=== PATIENT | female | born 1985 | race Caucasian/White ===

== ENCOUNTER 2017-12-08 19:01 | Observation (INO) | payer OTHER ==
[2017-12-08] MEDS ORDERED: Dicyclomine 20 MG TAB ONE (19:30)
[2017-12-08 19:51] LABS: Bilirubin Negative (Negative); Blood, Urine Negative (Negative); Clarity CLEAR (Clear); Glucose, Urine (Dipstick) Negative (Negative); Leukocyte Negative (Negative); Nitrite Negative (Negative); Protein, Urine (Dipstick) Negative (Neg-Trace); Specific Gravity, Urine 1.005 (1.002-1.036); Urobilinogen 0.2 mg/dL (0.2-1.0); pH, Urine 5.5 (5.0-9.0)
[2017-12-08] MEDS ORDERED: Piperacillin/Tazobactam 3.375 GM VIAL ONE (20:14)
--- NOTE | 2017-12-08 20:30 | ULT ---
ULTRASOUND ABDOMEN LIMITED: (RIGHT UPPER QUADRANT) DATE: 12-08-17 TIME: 7:48 p.m. HISTORY: 32-year-old female with right upper quadrant abdominal pain. FINDINGS: Gallbladder: Distended. Positive pericholecystic fluid. Some portions of the wall are normal while ot hers are edematous and thickened up to 7 mm. At least one tiny mobile gallstone, a few mm in size. Po sitive sonographic Harrison's sign. Common duct: 4 mm Liver: Echogenicity within normal limits Pancreas: Poorly visualized Right kidney: No hydronephrosis IMPRESSION: 1. Evidence for acute cholecystitis. 2. Cholelithiasis consisting of at least one tiny visualized gallstone. RUSS Thomas POS: ANTON
[2017-12-08 20:57] LABS: Mean Corpuscular HGB CONC 31.5 g/dL (32.0-36.0); Mean Corpuscular Hemoglobin 20.8 pg (27.0-31.0); Mean Corpuscular Volume 66.1 fL (78.0-98.0); Platelet Count 234 thou/uL (130-400); RBC Distribution Width 15.1 % (11.5-14.5); White Blood Cell (WBC) Count 9.7 thou/uL (4.8-10.8)
[2017-12-08 21:07] LABS: ALT (SGPT) 12 U/L (8-55); AST (SGOT) 15 U/L (5-34); Albumin 3.6 g/dL (3.5-5.0); Alkaline Phosphatase 67 U/L (40-150); Anion Gap 8 mmol/L (10-20); BUN (Urea Nitrogen) 11 mg/dL (7.0-18.7); Bilirubin, Total 0.6 mg/dL (0.2-1.2); Calc. Creatinine Clearance 0 mL/min (70-130); Calcium 8.4 mg/dL (7.8-10.44); Carbon Dioxide 23 mmol/L (22-29); Chloride 110 mmol/L (98-107); Estimated GFR-MDRD Greater than 90; Globulin 2.5 g/dL (2.4-3.5); Glucose 98 mg/dL (70-105); Lipase 73 U/L (8-78); Protein, Total 6.1 g/dL (6.0-8.3); Sodium 137 mmol/L (136-145)
[2017-12-08 21:18] LABS: #Lymphocytes 1.6 thou/uL (1.20-3.40); #Monocytes 0.5 thou/uL (0.11-0.59); #Neutrophils 7.5 thou/uL (1.40-6.50); %Basophils 0.4 % (0.0-1.0); %Eosinophils 0.1 % (0.0-10.0); %Lymphocytes 16.7 % (21.0-51.0); %Monocytes 5.4 % (0.0-10.0); %Neutrophils 77.4 % (42.0-75.0); Anisocytosis SLIGHT = 6-15 cells (100X) (0-5/hpf); MDiff Complete? YES; Microcytosis SLIGHT = 6-15 cells (100X) (0-5/hpf)
[2017-12-08] MEDS ORDERED: Dextrose 50% Abboject 50 ML SYRINGE SLOW IVP PRN (21:18)
[2017-12-08] MEDS ORDERED: Dextrose 5% in Water 1,000 ML IV PRN (21:18)
[2017-12-08] MEDS ORDERED: Ondansetron PF 4 MG/2 ML Vial IVP PRN (21:18)
--- NOTE | 2017-12-08 21:55 | HP ---
DATE OF ADMISSION: 12/08/2017 HISTORY OF PRESENT ILLNESS: Ms. Armas is a 32-year-old obese woman , who presented t o the Emergency Department today in [place] complaining of insidious onset postprandial epigastric t o right upper quadrant severe abdominal pain, which started approximately 2 hours after she had lunch . I had lunch consisting of scrambled eggs, biscuit, and gravy. The pain was described as a 10/10 i n intensity without any radiation. The pain was associated with multiple episodes of nausea and two bouts of emesis. She has been having frequent flatulence over the last 2 days and had one bout of diarrhea yesterday. The patient experienced similar pain in 2010, when she was almost near term. The pain, payne pérez, was self-limiting and was managed with bland diet to the time of delivery. She denies any fevers or chills today. PAST MEDICAL HISTORY: Significant for chronic anxiety disorder and gastroesophageal reflux disease. SURGICAL HISTORY: Pertinent for x2. Last was in 09/2010. FAMILY HISTORY: Notable for mother, who from complications of heart disease in her age 52. She denies any family history of essential hypertension, diabetes mellitus, or cancer. SOCIAL HISTORY: She lives at home with significant other and 2 children. She denies any cigarette s moking, ethanol, or illicit drug abuse. PREHOSPITAL MEDICATION: Includes Xanax, which she takes p.r.n. anxiety. She also takes Zantac over the counter, which she takes p.r.n. reflux disease. ALLERGIES: Patient denies any known drug allergies. REVIEW OF SYSTEMS: Ten-point review of systems essentially unremarkable except as stated in the past medical history and chief complaint. PHYSICAL EXAMINATION: GENERAL: This reveals a 32-year-old obese woman, who is otherwise coherent and interactive and appea rs stated age. The patient is alert and oriented x3. She appears to be in no significant acute dist ress at the time of this evaluation. VITAL SIGNS: Includes blood pressure 119/71, pulse is 67, respirations 16, temperature is 98.5 degre es Fahrenheit, and oxygen saturation is 98% on room air. HEENT: Reveals normocephalic and atraumatic. Pupils are equal, round, reactive to light and accommo dation. Extraocular muscles are intact bilaterally. She has no sclerae icterus present. HEART: Reveals regular rate and rhythm, no murmurs or gallops auscultated. LUNGS: Clear to auscultation bilaterally. Her breathing is regular and unlabored. ABDOMEN: Soft with epigastric and right upper quadrant tenderness to palpation. Liver and spleen ar e nonpalpable below costal margins. She has a healed Pfannenstiel incision consistent with previous C-sections. EXTREMITIES: Reveal 2+ radial and pedal pulses bilaterally. No ankle edema is present. NEUROLOGIC: Reveals no focal deficits present. IMAGING: I have personally reviewed the abdominal ultrasound, which was obtained here reveals a tiny mobile gallstone. The patient, however, has significant gallbladder wall thickening, which measures approximately 7 mm. There is pericholecystic fluid also present. Common bile duct is normal in diameter for this patient's age at 4 mm. PERTINENT LABORATORY FINDINGS: Today includes a CBC with 9700 white blood cells, hemoglobin and linwood tocrit 10.0 and 31.7 respectively. Platelet count is 234,000. Metabolic profile: Sodium 137, potas sium is 4.0, chloride is 110, bicarbonate 23, BUN 11, creatinine 0.67. AST and ALT normal at 15 and 12 respectively. Serum lipase is also normal at 73. IMPRESSION: Acute cholecystitis with cholelithiasis. RECOMMENDATIONS: [place] diet and analgesics and patient could be discharged home. Anticipate that th e pain might resolve. Alternatively, we will proceed with a laparoscopic cholecystectomy with potent ial risks for bleeding, infection, injury to bile duct or surrounding structures. This information was provided to the patient in the presence of a significant other and nurse at [facility]. The patient has elected to proceed with a cholecystectomy. She states that she has tried a bland t during her and is unwilling to go that direction. We will make an admin to proceed with laparoscopic cholecystectomy at this time.
[2017-12-08 22:59] VITALS: BMI 40.8
[2017-12-08] MEDS: Sodium Chloride 0.9% 1,000 ML IV SCH (23:15)
[2017-12-08] MEDS ORDERED: Ketorolac Tromethamine 30 MG/ML VIAL IVP SCH (23:59)
[2017-12-09] MEDS ORDERED: Fentanyl 100 MCG/2 ML VIAL ONE ×2 (02:21→04:18)
[2017-12-09] MEDS ORDERED: Bupivacaine/Epinephrine 0.25% 30 ML VIAL ONE (02:25)
[2017-12-09] MEDS ORDERED: Sodium Chloride 0.9% 10 ML ONE (03:22)
[2017-12-09] MEDS ORDERED: traMADol HCl 50 MG TAB PO PRN (04:02)
[2017-12-09] MEDS ORDERED: Ondansetron HCl/PF 4 MG/2 ML Vial IVP PRN (04:05)
[2017-12-09] MEDS ORDERED: Promethazine HCl 25 MG/ML VIAL IM PRN (04:05)
[2017-12-09] MEDS ORDERED: Promethazine HCl 25 MG/ML VIAL SLOW IVP PRN (04:05)
[2017-12-09] MEDS ORDERED: Acetaminophen 500 MG TAB PO SCH ×2 (04:30→12:00)
--- NOTE | 2017-12-09 04:33 | OP ---
DATE OF OPERATION: 12/09/2017 PREOPERATIVE DIAGNOSES: Acute cholecystitis with cholelithiasis. POSTOPERATIVE DIAGNOSES: Acute cholecystitis with cholelithiasis. OPERATION PERFORMED: Laparoscopic cholecystectomy. SURGEON: Reinaldo Granger D.O. ANESTHESIA: General endotracheal. ESTIMATED BLOOD LOSS: 25 mL. FLUIDS GIVEN: 1000 mL of crystalloids. SPONGE AND INSTRUMENT COUNT: Certified as correct x2. COMPLICATIONS: None apparent at the time of operation. INDICATIONS FOR OPERATION: This is a 32-year-old woman presented with recurrent epigastric right upp er quadrant abdominal pain. Clinical and radiographic examination was consistent with acute cholecys titis with cholelithiasis for which patient was brought to the operating room for cholecystectomy. F indings are consistent with gallbladder in the usual anatomic location completely encased by omental adhesions. There is significant amount of pericholecystic fluid present. DESCRIPTION OF OPERATION: Informed consent obtained from the patient who was brought to the operatin g room and placed in supine position. Following general anesthesia, abdomen is sterilely prepped and draped in usual fashion. The skin below the umbilicus was infiltrated with 0.25% Marcaine with epin ephrine. A small curvilinear infraumbilical incision is made using an 11 scalpel. Umbilical stalk g rasped with Xiao's and elevated. Veress needle was inserted through the incision and placed in the peritoneal cavity through which the abdomen was insufflated with 3 liters of CO2 gas. Intraabdomina l pressure noted at 3 mmHg. Following abdominal insufflation, Veress needle was removed and replaced with a 5 mm trocar introduced with a Visiport under laparoscopy. Laparoscopy confirmed proper place ment of the port, no injuries to underlying structures. Additional laparoscopy reveals gallbladder i n the usual anatomic location completely encased by omental adhesions. Under direct laparoscopy, a 1 2 mm epigastric and two 5 mm right lateral subcostal ports were placed after the overlying skin was i nfiltrated with 0.25% Marcaine with epinephrine and appropriate incisions made. The patient is place d in the reverse Trendelenburg position, rotated to her left. I introduced the [place] dissector wi th cautery, using this to take down omental adhesions. Prestige grasper was introduced through the r ight lateral subcostal port grasping the fundus of the gallbladder which was elevated cephalad. A se cond Prestige grasper was introduced through the right medial subcostal port grasping the Ruelas's p ouch which was retracted laterally. Cystic duct was carefully dissected free from surrounding struct ures and divided between clips. I applied two clips proximally and one clip at the junction of the c ystic duct and gallbladder. The cystic artery dissected free from surrounding structures and divided between clips in a similar fashion. Gallbladder surface removed from the liver bed using cautery wi th good hemostasis. Gallbladder is delivered of the abdominal cavity using an EndoCatch. Operative site was inspected for good hemostasis. Finding no other pathology, laparoscopy was terminated. Fas karen of the epigastric port was closed using 0 Vicryl suture and Endo Close device under laparoscopy. Abdomen was desufflated. All ports and instruments removed and accounted for. Skin incision was cl osed using 4-0 Monocryl suture in subcuticular fashion. Dermabond was applied over the incisional cl osure. The patient tolerated the operation without any apparent complication and was returned to rec overy room in a satisfactory condition.
[2017-12-09] MEDS: traMADol HCl 50 MG TAB PO PRN ×2 (06:54→13:48)
[2017-12-09] MEDS: Ketorolac Tromethamine 30 MG/ML VIAL IVP PRN ×2 (08:15→13:47)
[2017-12-09] MEDS: Sodium Chloride 0.9% 1,000 ML IV SCH (08:16)
[2017-12-09] MEDS ORDERED: Famotidine/PF 20 mg/2ml Vial SLOW IVP SCH (09:00)
[2017-12-09 11:57] VITALS: BP 114/70; TEMP 98.1
[2017-12-09] MEDS ORDERED: Glycopyrrolate 0.2 MG/ML 5 ML SYRINGE ONE (12:27)
[2017-12-09] MEDS ORDERED: Dexamethasone 20 MG/5 ML VIAL ONE (12:27)
[2017-12-09] MEDS ORDERED: Ondansetron PF 4 MG/2 ML Vial ONE (12:27)
[2017-12-09] MEDS ORDERED: ePHEDrine/0.9% NaCl/PF SYRINGE 50 mg/10 ml ONE (12:27)
[2017-12-09] MEDS ORDERED: Ketorolac Tromethamine 30 MG/ML VIAL ONE (12:27)
[2017-12-09] MEDS ORDERED: Succinylcholine Chloride 20 MG/ML 10 ml SYRINGE FS ONE (12:27)
[2017-12-09] MEDS ORDERED: PROPOFOL 200 MG/20 ML VIAL ONE (12:27)
--- NOTE | 2017-12-10 00:32 | DIS-2 ---
DATE OF ADMISSION: 12/08/2017 DATE OF DISCHARGE: 12/09/2017 RESIDENT: Nya Quinones MD ADMITTING ATTENDING: Reinaldo Granger DO DISCHARGE ATTENDING: Kenton Thapa MD CONSULTS: None. PROCEDURES: 1. Abdomen ultrasound significant for evidence of acute cholecystitis and cholelithiasis consisting of at least one tiny gallstone. 2. Laparoscopic cholecystectomy. PRIMARY DIAGNOSIS: Acute cholecystitis. SECONDARY DIAGNOSES: 1. Chronic anxiety disorder. 2. Gastroesophageal reflux disease. DISCHARGE MEDICATIONS: 1. Ventolin 2 puffs inhaled every 6 hours p.r.n. 2. Xanax 0.5 mg p.o. t.i.d. p.r.n. 3. Ranitidine HCL 300 mg p.o. b.i.d. 4. Tylenol Extra Strength 1000 mg p.o. every 6 hours p.r.n. for pain. 5. Tramadol HCL 50 mg p.o. every 6 hours p.r.n. for pain. DISCONTINUED MEDICATIONS: None. HOSPITAL COURSE: Patient is a 32-year-old obese woman who presented to the emergency department with a chief complaint of insidious onset of postprandial epigastric pain in her right upper quadrant that occurred approximately 2 hours after the patient ate lunch that day. Pain was associated with multiple episodes of nausea and 2 bouts of emesis. On initial evaluation in the emergency department, the patient's vitals were all noted to be within normal limits. While in the emergency department, the patient received a dose of IV Zosyn, 1 liter of normal saline, and 20 mg of Bentyl PO. Routine labs were obtained and were significant for a slightly elevated WBC count of 10.9; however, her CMP was WNLs. An abdominal ultrasound was also obtained, which was significant for acute cholecystitis with cholelithiasis. General surgery was subsequently consulted who came and evaluated the patient in the emergency department and recommended either a bland diet and analgesics with discharge home or a laparoscopic cholecystectomy. The patient elected to proceed with a laparoscopic cholecystectomy and was subsequently taken to the operating room. She tolerated the procedure well without any complications. After surgery, the patient was admitted for observation overnight. By the following morning, she was tolerating PO, ambulating without any difficulty, and her pain was well-controlled on PO pain medications. She was therefore cleared for discharge home in stable condition. DISPOSITION: Stable. DISCHARGE INSTRUCTIONS: 1. Location: Home. 2. Diet: Heart healthy diet. 3. Activity: As tolerated. 4. Followup: The patient was instructed to follow up with her primary care provider within 1 week of discharge and to follow up with Trauma Team, Dr. Reinaldo Granger in 14 days of discharge. LAWRENCE
--- NOTE | 2017-12-14 16:30 | EKG ---
Test Reason : Blood Pressure : / mmHG Vent. Rate : 054 BPM Atrial Rate : 054 BPM P-R Int : 148 ms QRS Dur : 084 ms QT Int : 442 ms P-R-T Axes : 072 076 065 degrees QTc Int : 419 ms Sinus bradycardia Otherwise normal ECG Confirmed by WINSTON MADISON ([id number]), editor greeting card NAYA MEZA ([id number]) on 12/14/2017 4:29:51 PM Referred By: Confirmed By:WINSTON MADISON
== END 2017-12-09 14:18 | disposition home or self-care (01) ==
LOC: ERS 19:01 → SURG A 21:17
PROVIDERS: ADMIT Surgery; ATTEND Surgery
PROC: 0FT44ZZ Resection of Gallbladder, Percutaneous Endoscopic Approach (ICD-10-PCS; principal; 2017-12-09)
DX: K80.12 Calculus of gallbladder with acute and chronic cholecystitis without obstruction (principal); K82.8 Other specified diseases of gallbladder; K21.9 Gastro-esophageal reflux disease without esophagitis; F41.9 Anxiety disorder, unspecified; E66.9 Obesity, unspecified; Z68.41 Body mass index [BMI] 40.0-44.9, adult; Z79.899 Other long term (current) drug therapy
CPT/HCPCS: 36415; 76705; 81003; 83690; 88304; 93005; 96361; 96365; 96375; 96376; G0378; J1100; J1885; J2405; J2543; J2704; J3010; S0028

== ENCOUNTER 2023-05-21 22:59 | Emergency (ER) | payer OTHER, SELFPAY ==
[2023-05-22] MEDS ORDERED: Ketorolac Tromethamine 30 MG (1 mL) VIAL ONE (02:32)
== END 2023-05-22 02:33 | disposition home or self-care (01) ==
LOC: ERS 22:59
DX: S93.431A Sprain of tibiofibular ligament of right ankle, initial encounter (principal); W10.8XXA Fall (on) (from) other stairs and steps, initial encounter
CPT/HCPCS: 96372; J1885